=== PATIENT | female | born 2000 | race Caucasian/White ===

== ENCOUNTER 2019-05-16 23:36 | Emergency (ER) | payer OTHER ==
[~2019-05-16] VITALS: Ht 175.3 cm; Wt 79.4 kg
[2019-05-17] MEDS ORDERED: HYDROCODON-ACE1 EAC8 PO (01:54)
[2019-05-17 01:58] VITALS: BP 118/70
== END 2019-05-17 02:00 | disposition home or self-care (01) ==
LOC: M.ERS 23:36
DX: R22.0 Localized swelling, mass and lump, head (principal); Y04.0XXA Assault by unarmed brawl or fight, initial encounter; Y93.89 Activity, other specified; Y92.89 Other specified places as the place of occurrence of the external cause; Y99.8 Other external cause status